=== PATIENT | female | born 1950 | race African-American/Black ===

== ENCOUNTER 2018-08-14 22:06 | Inpatient (IN) | payer OTHER, MEDICARE, BC ==
[~2018-08-14] VITALS: Ht 158.8 cm; Wt 72.6 kg
[2018-08-15 09:00] VITALS: BP 137/69
[2018-08-15] MEDS ORDERED: DIPHENHYDRAMINE 50MG/ML VIAL IV PRN (09:00)
[2018-08-15] MEDS ORDERED: ONDANSETRON HCL 4MG/2ML INJ IV PRN (09:00)
[2018-08-15] MEDS ORDERED: ACETAMINOPHEN 325MG TABLET PO PRN (09:00)
[2018-08-15] MEDS ORDERED: IPRATROPIUM/ALBUTEROL 0.5-3(2.5)MG/3ML NEB INH PRN (09:00)
[2018-08-15] MEDS ORDERED: CLONIDINE 0.1MG TABLET PO PRN (09:00)
[2018-08-15] MEDS ORDERED: EXEN2PEN SQ (09:07)
[2018-08-15] MEDS ORDERED: METF-414 MT (09:07)
[2018-08-15] MEDS ORDERED: CHOL100046 MT (09:07)
[2018-08-15] MEDS ORDERED: CYAN50003 MT (09:07)
[2018-08-15] MEDS ORDERED: METHYLPREDNISOLONE SOD SUCC 40 MG/ML VIAL IV NR (09:14)
[2018-08-15] MEDS: LORATADINE 10MG TABLET PO SCH (10:38)
[2018-08-15] MEDS: LINAGLIPTIN 5MG TABLET PO SCH (10:38)
[2018-08-15 12:00] VITALS: BP 115/50
[2018-08-15 12:17] LABS: EOSINOPHILS % 3.2 % (0.0-5.0); HEMATOCRIT. 36.8 % (36.0-48.0); LYMPHOCYTES % 29.8 % (20.0-50.0); MEAN CORPUSCULAR HEMOGLOBIN 27.5 pg (28.0-32.0); MEAN CORPUSCULAR VOLUME 84.1 fL (81.0-99.0); MEAN PLATELET VOLUME 8.1 fl (7.4-10.4); MONOCYTES % 10.2 % (2.0-8.0); NEUTROPHILS % 55.8 % (40.0-76.0); PLATELET 257 x1000/uL (130-400); RED BLOOD CELL COUNT 4.38 mill/uL (4.2-5.4); RED CELL DISTRIBUTION WIDTH 16.8 % (11.6-14.6)
[2018-08-15 12:23] LABS: CHLORIDE 110 mEq/L (98-107)
[2018-08-15 12:31] LABS: LDL CHOLESTEROL 92 mg/dL (5-100)
[2018-08-15 12:32] LABS: HDL CHOLESTEROL 74 mg/dL (40-59)
[2018-08-15] MEDS ORDERED: ENOXAPARIN 40MG/0.4ML SYR SUBCUT SCH (15:00)
[2018-08-15] MEDS ORDERED: DEXTROSE 50% WATER 50ML SYRINGE IV PRN (15:00)
[2018-08-15 16:00] VITALS: BP 120/60
[2018-08-15] MEDS: BLOOD SUGAR DIAGNOSTIC STRIP TEST SCH ×2 (17:11→21:06)
[2018-08-15] MEDS: METFORMIN HCL 500MG TABLET PO SCH (18:21)
[2018-08-15] MEDS: INSULIN LISPRO 100 UNITS/ML SUBCUT SCH ×2 (18:25→21:00)
[2018-08-15 20:00] VITALS: BP 130/72
[2018-08-16] VITALS: BP 127/65
[2018-08-16 04:00] VITALS: BP 124/64
[2018-08-16] MEDS: BLOOD SUGAR DIAGNOSTIC STRIP TEST SCH (05:49)
[2018-08-16] MEDS: INSULIN LISPRO 100 UNITS/ML SUBCUT SCH (05:50)
[2018-08-16 06:46] LABS: BASOPHILS % 0.1 % (0.0-2.0); EOSINOPHILS % 0.1 % (0.0-5.0); HEMATOCRIT. 34.9 % (36.0-48.0); HEMOGLOBIN. 11.5 g/dL (12.0-16.0); LYMPHOCYTES % 12.3 % (20.0-50.0); MEAN CORPUSCULAR HEMOGLOBIN 27.4 pg (28.0-32.0); MEAN CORPUSCULAR VOLUME 83.2 fL (81.0-99.0); MEAN PLATELET VOLUME 7.9 fl (7.4-10.4); MONOCYTES % 7.7 % (2.0-8.0); NEUTROPHILS % 79.8 % (40.0-76.0); PLATELET 278 x1000/uL (130-400); RED CELL DISTRIBUTION WIDTH 16.8 % (11.6-14.6)
[2018-08-16 06:54] LABS: CHLORIDE 110 mEq/L (98-107)
[2018-08-16] MEDS: METFORMIN HCL 500MG TABLET PO SCH (07:40)
[2018-08-16 08:00] VITALS: BP 108/58
[2018-08-16] MEDS: LINAGLIPTIN 5MG TABLET PO SCH (09:00)
[2018-08-16] MEDS: LORATADINE 10MG TABLET PO SCH (09:36)
[2018-08-16 09:40] VITALS: BP 108/58
== END 2018-08-16 10:18 | disposition home or self-care (01) | DRG 916 ==
LOC: ER 22:06 → 8WST 08-15 06:41 → EDBEDREQ 08-15 06:45 → EDBEDREQTM 08-15 06:45 → ENRESERV 08-15 07:53
PROVIDERS: ADMIT Internal Medicine Geriatric Medicine; ATTEND Internal Medicine Geriatric Medicine
PROC: 30233K1 Transfusion of Nonautologous Frozen Plasma into Peripheral Vein, Percutaneous Approach (ICD-10-PCS; principal; 2018-08-15)
DX: T78.3XXA Angioneurotic edema, initial encounter (principal); X58.XXXA Exposure to other specified factors, initial encounter; E11.9 Type 2 diabetes mellitus without complications; E78.00 Pure hypercholesterolemia, unspecified; I10 Essential (primary) hypertension; T46.4X5A Adverse effect of angiotensin-converting-enzyme inhibitors, initial encounter; Z79.84 Long term (current) use of oral hypoglycemic drugs; Y93.89 Activity, other specified; Y92.89 Other specified places as the place of occurrence of the external cause; Y99.8 Other external cause status; Z79.899 Other long term (current) drug therapy
CPT/HCPCS: 36415; 71045; 80048; 80061; 82962; 83036; 86850; 86900; 86927; 96365; 99285; J1650; J1815; J2920; J7040; P9017